=== PATIENT | male | born 1970 | race Caucasian/White ===

== ENCOUNTER 2020-02-02 23:23 | Emergency (ER) | payer SELFPAY ==
[~2020-02-02] VITALS: Ht 175.3 cm; Wt 96.6 kg
[2020-02-02 23:30] VITALS: Ht 175.3 cm; Wt 96.6 kg
[2020-02-02 23:55] VITALS: BP 145/94
== END 2020-02-02 23:55 | disposition home or self-care (01) ==
LOC: ED 23:23
DX: L29.9 Pruritus, unspecified (principal); R07.0 Pain in throat; R13.10 Dysphagia, unspecified

== ENCOUNTER 2020-02-05 17:56 | Emergency (ER) | payer SELFPAY ==
[~2020-02-05] VITALS: Ht 177.8 cm; Wt 98.4 kg
[2020-02-05 18:03] VITALS: Ht 177.8 cm; Wt 98.4 kg
[2020-02-05 18:34] VITALS: BP 143/93
== END 2020-02-05 18:34 | disposition home or self-care (01) ==
LOC: ED 17:56
DX: L29.9 Pruritus, unspecified (principal); R03.0 Elevated blood-pressure reading, without diagnosis of hypertension